=== PATIENT | female | born 1955 | race Caucasian/White ===

== ENCOUNTER → 2018-04-02 09:50 | Outpatient (CLI) | payer BC, OTHER, SELFPAY ==
--- NOTE | 2018-04-02 09:50 | DT_ITS ---
This patient was seen during an EMR downtime March 29, 2018 - April 05, 2018. This patient may have a combination of paper and electronic documentation or all paper documentation. All documentation is viewable within the e-chart portion of [email or web address] for each patient visit.
[2018-04-06 11:30] LABS: Basophil% 0.8 % (0-1); Eosinophils% 1.4 % (0-5); Hematocrit 39.1 % (37-47); Hemoglobin 13.2 g/dl (12.0-15.0); Lymphocyte % 30.7 % (19-41); Mean Corp Hgb Conc 33.8 g/gl (32-36); Mean Corpuscular Hgb 30.7 pg (27.0-32.0); Mean Corpuscular Volume 90.9 fL (81-99); Mean Platelet Vol. 10.5 fl (6.2-12.0); Neutrophil # 1.97 X10^3/uL (2.7-7.7); Neutrophil % 55.1 % (47-70); POSITIVE COUNT NO; POSITIVE DIFFERENTIAL NO; POSITIVE MORPHOLOGY NO; Platelet Count 200 K/mm3 (150-450); RBC Distribution Width CV 13.7 % (11.6-14.6); RBC Distribution Width SD 44.9 fl (35.1-43.9); White Blood Count 3.6 K/mm3 (4.4-11.0)
[2018-04-06 11:31] LABS: Basophil# 0.03 X10^3/uL; Eosinophil# 0.05 X10^3/uL; Monocyte# 0.43 X10^3/uL
[2018-04-06 15:57] LABS: BUN 14 mg/dL (7-18); BUN/Creat Ratio 14.7 RATIO (10-20); Calcium,Total 8.7 mg/dL (8.5-10.1); Creatinine, Serum 0.95 mg/dL (0.55-1.02); EST Glomerular Filtration Rate 63 mL/min (>60); Est Glom Filt Rate - Afr Amer 76 mL/min (>60); Glucose 83 mg/dL (74-106); Vitamin D,25 Hydroxy 31.6 ng/mL (29.95-100.01)
[2018-04-06 15:58] LABS: Anion Gap 6 (5-15); Chloride 109 mmol/L (98-107); Cholesterol 177 mg/dL (200); High Density Lipoprotein 83 mg/dL; Potassium 3.8 mmol/L (3.5-5.1); Sodium Level 142 mmol/L (136-145); Triglycerides 46 mg/dL; Very Low Density Lipoprotein 9 mg/dL (5-40)
== END ==
PROVIDERS: Visit Provider Family Medicine
DX: Z01.419 Encounter for gynecological examination (general) (routine) without abnormal findings (principal)
CPT/HCPCS: 36415; 80048; 80061; 82306; 85025

== ENCOUNTER → 2018-12-18 08:11 | Outpatient (CLI) | payer BC, SELFPAY ==
--- NOTE | 2018-12-18 08:14 | BI_ITS ---
MAMMOGRAPHY - BILATERAL SCREENING REASON FOR EXAM: Female, 63 years old. Routine annual screening examination. PERTINENT HISTORY: Mother with breast cancer. TECHNIQUE: Digital bilateral breast leoncio (3D mammographic acquisition) in the CC and MLO projections. 2-D mediolateral oblique (MLO) and craniocaudad (CC) views of both breasts were obtained. CAD: Full Field Digital Mammography with Computer Added Detection was performed. COMPARISON: Comparison is made with prior study dated October 01, 2017 and August 04, 2016. FINDINGS: Breast Composition: There are scattered areas of fibroglandular density. There are no dominant masses or suspicious calcifications. No other significant abnormalities are identified. There has been no significant change since the prior study. BI/SCREENING MAMM (CAD), BILAT IMPRESSION: Stable bilateral screening mammogram. Yearly follow-up mammogram recommended. (A) ASSESSMENT CATEGORY: BIRADS Category 1: Negative. A letter regarding these results will be sent to the patient by the facility within 30 days. Approximately 10% of breast cancers are not detected by mammography. A normal mammogram should not delay biopsy of a clinically suspicious abnormality. [id number] Electronically Signed: Kemar Price MD at 8:56 EST , Service support ,
== END ==
PROVIDERS: Family Provider Family Medicine; PCP Family Medicine; Referring Provider Family Medicine; Visit Provider Family Medicine
DX: Z12.31 Encounter for screening mammogram for malignant neoplasm of breast (principal)
CPT/HCPCS: 77063; 77067

== ENCOUNTER → 2019-05-17 08:09 | Outpatient (CLI) | payer MEDICARE, BC, SELFPAY ==
[2019-05-17 10:08] LABS: Hemoglobin 12.3 g/dL (12.0-15.0); Mean Corp Hgb Conc 33.2 g/dL (32-36); Mean Corpuscular Hgb 31.1 pg (27.0-32.0); Mean Corpuscular Volume 93.4 fL (81-99); Mean Platelet Vol. 10.8 fl (6.2-12.0); Platelet Count 177 K/mm3 (150-450); RBC Distribution Width CV 13.3 % (11.6-14.6); RBC Distribution Width SD 45.1 fl (35.1-43.9); Red Blood Count 3.96 M/mm3 (4.2-5.4); White Blood Count 3.1 K/mm3 (4.4-11.0)
[2019-05-17 10:40] LABS: Anion Gap 2 (5-15); BUN 11 mg/dL (7-18); BUN/Creat Ratio 13.3 RATIO (10-20); Calcium,Total 8.8 mg/dL (8.5-10.1); Chloride 109 mmol/L (98-107); Cholesterol 174 mg/dL (200); Creatinine, Serum 0.83 mg/dL (0.55-1.02); EST Glomerular Filtration Rate 73 mL/min (>60); Est Glom Filt Rate - Afr Amer 89 mL/min (>60); Glucose 85 mg/dL (74-106); High Density Lipoprotein 90 mg/dL; Sodium Level 141 mmol/L (136-145); Triglycerides 75 mg/dL; Very Low Density Lipoprotein 15 mg/dL (5-40)
[2019-05-17 10:52] LABS: Vitamin D,25 Hydroxy 25.3 ng/mL (29.95-100.01)
== END ==
PROVIDERS: Family Provider Family Medicine; PCP Family Medicine; Referring Provider Family Medicine; Visit Provider Family Medicine
DX: Z00.00 Encounter for general adult medical examination without abnormal findings (principal); Z13.220 Encounter for screening for lipoid disorders; E55.9 Vitamin D deficiency, unspecified
CPT/HCPCS: 36415; 80048; 80061; 82306; 85027

== ENCOUNTER → 2019-07-01 16:47 | Outpatient (CLI) | payer MEDICARE, BC, SELFPAY ==
--- NOTE | 2019-07-01 16:53 | CT_ITS ---
We are attempting to reach an attending provider to discuss findings. An addendum with communication details will be sent when the communication is complete. STUDY: CTA CHEST REASON FOR EXAM: Female, 64 years old. Shortness of breath RADIATION DOSAGE (If Supplied By Facility): CTDIvol = ( 5.03 ) mGy, DLP = ( 156.08 ) mGycm TECHNIQUE: The examination was performed with the intravenous administration of 100 IV Isovue 370. Post-processing of the angiographic images was performed, with multiplanar reformation and 3D reconstruction. Individualized dose optimization techniques were used for this CT. COMPARISON: None. FINDINGS: There are pulmonary emboli within left upper lobe lobar, segmental, and subsegmental branches and in the right upper and middle lobe segmental and subsegmental branches as well as right lower lobe subsegmental branches. There is no demonstrated aortic dissection. Normal heart and pericardium. Normal mediastinum. Normal hilar regions. Normal visualized trachea and bronchi. The lungs are well expanded. Mild pulmonary edema is present. Bibasilar atelectasis is present. Right greater than left pleural effusions are present. Normal chest wall structures. Normal osseous structures. Normal visualized upper abdomen. CT/CTA Chest W/WO Contrast IMPRESSION: Multiple bilateral pulmonary emboli as described above. Right greater than left pleural effusions with adjacent atelectasis. Mild pulmonary edema. Electronically Signed: Wes Black, at 17:39 EDT Tel , Service support ,
[2019-07-01 17:16] LABS: CREATININE FINGERSTICK 0.9 mg/dL (0.55-1.02)
== END ==
PROVIDERS: Family Provider Family Medicine; PCP Family Medicine; Referring Provider Family Medicine; Visit Provider Family Medicine
DX: J45.990 Exercise induced bronchospasm (principal); R06.02 Shortness of breath
CPT/HCPCS: 71275; Q9967

== ENCOUNTER 2019-07-01 18:00 | Inpatient (IN) | payer MEDICARE, BC, SELFPAY ==
[2019-07-01 18:02] VITALS: BP 148/85; PULSE 66; RESP 18; TEMP 36.5; O2SAT 88; BMI 26.9
--- NOTE | 2019-07-01 18:19 | EKG12_ITS ---
Test Reason : SOB Blood Pressure : / mmHG Vent. Rate : 057 BPM Atrial Rate : 057 BPM P-R Int : 130 ms QRS Dur : 084 ms QT Int : 432 ms P-R-T Axes : 035 063 037 degrees QTc Int : 420 ms Sinus bradycardia Nonspecific ST abnormality Abnormal ECG Confirmed by DREAD FRYE ([id number]), manager editorial ANGELICA MENON ([id number]) on 07/04/2019 2:22:11 PM Referred By: Leonardo Tobar Confirmed By:DREAD FRYE
[2019-07-01 18:49] LABS: Absolute Lymphocyte Count 1.45 X10^3/uL (0.83-4.51); Absolute Neutrophil Count 4.5 X10^3/uL (2.0-7.7); Basophil# 0.06 X10^3/uL; Basophil% 0.8 % (0-1); Eosinophil# 0.07 X10^3/uL; Hematocrit 35.4 % (37-47); Hemoglobin 11.7 g/dL (12.0-15.0); Lymphocyte # 1.45 X10^3/ul (4.0); Lymphocyte % 20.3 % (19-41); Mean Corp Hgb Conc 33.1 g/dL (32-36); Mean Corpuscular Volume 93.7 fL (81-99); Mean Platelet Vol. 10.5 fl (6.2-12.0); Monocyte# 0.91 X10^3/uL; Monocyte% 12.7 % (0-10); NRBC Flagged by Analyzer 0 % (0-5); Neutrophil # 4.51 X10^3/uL (2.7-7.7); Platelet Count 141 K/mm3 (150-450); RBC Distribution Width CV 13.8 % (11.6-14.6); RBC Distribution Width SD 46.9 fl (35.1-43.9); Red Blood Count 3.78 M/mm3 (4.2-5.4); White Blood Count 7.2 K/mm3 (4.4-11.0)
[2019-07-01 18:52] LABS: International Normalized Ratio 1.2; Prothrombin Time (Protime)PT. 14.8 SECONDS (11.7-14.9)
[2019-07-01 18:53] LABS: Partial Thromboplast Time 25.2 Seconds (24.1-36.2)
[2019-07-01 18:58] VITALS: BP 162/80; PULSE 59; RESP 18; O2SAT 99
[2019-07-01 19:15] LABS: AST(SGOT) 52 U/L (15-37); Alanine Aminotransfer ALT/SGPT 61 U/L (13-56); Albumin, Serum 2.9 g/dL (3.2-5.0); Alkaline Phosphatase 287 U/L (45-117); Anion Gap 4 (5-15); BUN 8 mg/dL (7-18); BUN/Creat Ratio 10.2 RATIO (10-20); Calcium,Total 8.1 mg/dL (8.5-10.1); Chloride 106 mmol/L (98-107); Creatinine, Serum 0.78 mg/dL (0.55-1.02); EST Glomerular Filtration Rate 79 mL/min (>60); Est Glom Filt Rate - Afr Amer 95 mL/min (>60); Estimated Creatinine Clearance 62.09 ml/min; Glucose 90 mg/dL (74-106); Lipase 578 U/L (73-393); Potassium 3.2 mmol/L (3.5-5.1); Protein, Total 5.9 g/dL (6.4-8.2); Sodium Level 141 mmol/L (136-145)
[2019-07-01 19:25] LABS: BNP,B-Type NATRIURETIC PEPTIDE 337.6 pg/mL (0-100)
--- NOTE | 2019-07-01 19:29 | ED.VIS.GEN ---
History of Present Illness Chief Complaint: Shortness of Breath Informant: Patient Onset: Days Context: Gradual Onset Timing: Continuous Current Severity: Moderate Maximum Severity: Severe Narrative: The patient presents to the emergency department with shortness of breath and outpatient CT scan which shows bilateral pulmonary emboli. The patient recently traveled to [place] with for vacation. She states that while there, she had a gallbladder attack. The patient was admitted to the hospital. She had gallstone pancreatitis. She underwent ERCP, and the next day she had a laparoscopic cholecystectomy. Prior to discharge, the patient was hypoxic with ambulation. Since she was out of town, she did not want to stay at the hospital. She returned home and followed up with her primary care. She was found to be 88% on room air. She had outpatient CT scan done today which demonstrated multiple bilateral pulmonary emboli and small effusions. Patient denies any chest pain. She does admit to exertional dyspnea. She denies abdominal pain. She states her incisions have been healing without issue. Prior similar symptoms: No Recent Illness/Hospitalization: Yes Past Medical History - Allergies and Home Meds Allergies/Adverse Reactions: Allergies No Known Allergies Allergy (Verified 07/01/19 18:01) Primary Care Physician: Leonardo Tobar MD [Primary Care Provider] - Prior records reviewed: Yes Past Medical History: None Surgical History: cholecystectomy Smoking Status: Never smoker Review of Systems General: Denies: Chills, Fever, Sweats Eyes: Denies: Visual changes - bilaterally, Diplopia ENT: Denies: Rhinorrhea, Sore throat Cardiovascular: Denies: Chest pain, Palpitations Respiratory: Reports: Dyspnea, Dyspnea on exertion, Orthopnea. Denies: Cough Gastrointestinal: Reports: Nausea. Denies: Abdominal pain, Vomiting, Diarrhea, Melena, Hematochezia Genitourinary: Denies: Dysuria, Hematuria, Frequency Musculoskeletal: Denies: Back pain, Extremity Pain Skin: Denies: Rash, Wounds Neurological: Denies: Headache, Weakness, Numbness Physical Exam Vital Signs/Narrative: Vital Signs Temp Pulse Resp BP Pulse Ox 07/01/19 18:58 59 L 18 162/80 H 99 07/01/19 18:02 97.7 F L 66 18 148/85 H 88 Inital Vital Signs reviewed: Yes General: Well nourished, Well developed, No Acute Distress Head: Normocephalic, Atraumatic Eyes: Perrl, EOMI ENT: Moist mucous membranes, No rhinorrhea Neck: Supple, Nontender Cardiovascular: Regular rate, Regular rhythm, No murmurs Respiratory: No distress, Chest nontender, Decreased Air Movement Abdomen: Soft, Nontender, Nondistended, Normal bowel sounds Back: Nontender, Normal Inspection Extremities: Nontender, Edema - Trace edema bilateral lower extremities Skin: Normal color, No rash Neurological: Alert, Oriented x3, Cranial nerves II-XII grossly intact, Normal Strength, Normal Sensation Psychological: Normal affect, Normal Mood Diagnostic/Tx/Re-eval Abnormal Lab Results 07/01/19 07/01/19 07/01/19 18:35 18:35 18:35 WBC 7.2 RBC 3.78 L Hgb 11.7 L Hct 35.4 L MCV 93.7 MCH 31.0 MCHC 33.1 RDW Std Deviation 46.9 H RDW Coeff of Nilson 13.8 Plt Count 141 L MPV 10.5 Immature Gran % (Auto) 2.200 H Neut % (Auto) 63.0 Lymph % (Auto) 20.3 [place] % (Auto) 12.7 H Eos % (Auto) 1.0 Baso % (Auto) 0.8 Absolute Neuts (auto) 4.5 Absolute Lymphs (auto) 1.45 Nucleated RBC % 0 PT 14.8 INR 1.2 APTT 25.2 Sodium 141 Potassium 3.2 L Chloride 106 Carbon Dioxide 31.0 Anion Gap 4 L BUN 8 Creatinine 0.78 Estim Creat Clear Calc 62.09 Est GFR (MDRD) Af Amer 95 Est GFR (MDRD) Non-Af 79 BUN/Creatinine Ratio 10.2 Glucose 90 Calcium 8.1 L Total Bilirubin 1.20 H AST 52 H ALT 61 H Alkaline Phosphatase 287 H Troponin I < 0.015 B-Natriuretic Peptide Total Protein 5.9 L Albumin 2.9 L Globulin 3.0 Albumin/Globulin Ratio 1.0 Lipase 578 H 07/01/19 18:35 WBC RBC Hgb Hct MCV MCH MCHC RDW Std Deviation RDW Coeff of Nilson Plt Count MPV Immature Gran % (Auto) Neut % (Auto) Lymph % (Auto) [place] % (Auto) Eos % (Auto) Baso % (Auto) Absolute Neuts (auto) Absolute Lymphs (auto) Nucleated RBC % PT INR APTT Sodium Potassium Chloride Carbon Dioxide Anion Gap BUN Creatinine Estim Creat Clear Calc Est GFR (MDRD) Af Amer Est GFR (MDRD) Non-Af BUN/Creatinine Ratio Glucose Calcium Total Bilirubin AST ALT Alkaline Phosphatase Troponin I B-Natriuretic Peptide 337.6 H Total Protein Albumin Globulin Albumin/Globulin Ratio Lipase - Rhythm Strip Rhythm Strip: Sinus Rhythm Rate: 60 Ectopy: None - EKG Initial EKG Interpretation: Sinus Rhythm, No Acute Injury Pattern, Non-Specific ST Changes Prior: No Prior - Medical Decision Making The patient was hypoxic on room air. She was not tachycardic. EKG was obtained which showed some nonspecific T wave changes in V1 and V2. I did review the patient's CTA which was consistent with multiple bilateral pulmonary emboli. As the patient is hypoxic, I do feel that she is can require admission. Patient's cardiac enzymes are normal. Her BNP was mildly elevated, but she does have small effusions. There is no evidence of ventricular strain on her CTA. She does have mild elevation of her LFTs and lipase, but was just admitted and had ERCP and cholecystectomy. She has absolutely no abdominal pain. With her recent surgery, I do feel the patient is going to require heparin drip. Given her hypoxia, I do feel that she will need admitted. The patient was discussed with the hospitalist. Impression 1. Bilateral pulmonary emboli. 2. Hypoxia ED Disposition - Plan for ED Patient: Referrals: Leonardo Tobar MD [Primary Care Provider] -
--- NOTE | 2019-07-01 19:54 | HP.PCM_ITS ---
Problem List (1) Bilateral pulmonary embolism Status: Acute History of Present Illness Date of Admission: 07/01/19 Chief Complaint: SHORTNESS OF BREATH The patient is a 64 year old F who had Gallbladder pancreatitis S/P ERCP with stent and cholecystectomy presenting with shortness of breath with minimal exertion in the same week that she had her ERCP and cholecystomy. Her symptoms started a day before presentation. She and her drove to [place], [place] for hiking. While there she had a gallbladder attack and was hospitalized as stated above. On 06/28/2019 she had a ERCP with a stent and the next day she had a cholecystectomy. While at the hospital because of bradycardia and labile blood pressure she was advised to see a sand screener operator on discharge. Her oxygen over there was a 70s with ambulation. Patient was eventually discharged with a plan to see a sand screener operator as above. Her discharge was with hesitation. After discharge and on the day of this presentation, she saw her PCP. At the PCPs office her oxygen saturation was low. Patient was sent for CTPA. CTPA showed multiple emboli and patient was advised to come to emergency department. She denies any leg pain. However bilateral legs has been swollen but now the swelling is going down. She thinks that IV fluid she received at her recent hospitalization might have contributed to her bilateral leg swelling. Her last mammogram was in November 2018 and it was unremarkable. Last colonoscopy was last year and it was unremarkable. She denies any family history of blood clots. At the emergency department she was found to have T wave inversions in lead V1 and V2. Her troponin was unremarkable. Past Medical History Medical History: Medical History (Last Updated 07/01/19 @ 21:02 by Javon De Luna MD) No previous medical history Allergies No Known Allergies Allergy (Verified 07/01/19 18:01) Home Medications: Ambulatory Orders Medication Instructions Recorded Acetaminophen [Tylenol Extra 1,000 mg PO Q6H PRN PRN 07/01/19 Strength] Ciprofloxacin [Cipro] 500 mg PO BID 07/01/19 Surgical History: cholecystectomy Lives: Spouse/ Significant Other Smoking Status: Never smoker Alcohol: Occasional - *Family History Maternal History Items: Cancer - Breast Paternal History Items: - - Leukemia Review of Systems Constitutional: Denies: Chills, Fever, Weight Change HEENT: Denies: Head Aches, Sinus Congestion, Sinus Drainage Cardiovascular: Denies: Chest Pain, Palpitations Respiratory: Reports: Shortness of breath upon exertion. Denies: Cough, Shortness of breath at rest, Sputum production Gastrointestinal: Denies: Abdominal Pain, Nausea, Vomiting Genitourinary: Denies: Dysuria Musculoskeletal: Reports: Back Pain. Denies: Joint Pain, Joint Tenderness Skin: Denies: Rash, Wounds Neurological: Denies: Numbness, Tingling, Focal weakness Psychiatric: Denies: Anxiety, Depression, Homicidal Ideations, Suicidal Ideations Hematologic/ Lymphatic: Denies: Easy Bruising, Easy Bleeding VTE Information - Inpt Only VTE Present on Admission: Yes - She has been started on heparin drip. VTE Mechan Device Prophylaxis: None VTE Pharm Prophylaxis ordered?: No Reason prophylaxis not ordered:: Treatment Not Indicated - Started on heparin drip for acute bilateral PE Patient Problems: Active and Suspected Problems (Last Updated 07/01/19 @ 21:02 by Javon De Luna MD) Bilateral pulmonary embolism (Acute) - Physical Exam General: Alert, Oriented x3, Cooperative HEENT: Atraumatic, PERRLA, EOMI, Normocephalic Neck: Supple, No JVD, Negative Carotid Bruits Lungs: Clear to auscultation, Diminished Cardiovascular: Regular rate, No murmurs Abdomen: Bowel Sounds Present, Soft, Non Tender, - - Four incisions on abdomen approximated with glue Extremities: Capillary Refill Less than 3 Seconds, Edema - +1 bilateral feet. Skin: No rashes, No breakdown Musculoskeletal: No Tenderness to Palpation of Joints or Extremities Neurological: Cranial nerves II-XII grossly intact Psych/Mental Status: Normal Affect, Appropriate Vital Signs Temp Pulse Resp BP Pulse Ox 97.7 F L 59 L 18 162/80 H 99 07/01/19 18:02 07/01/19 18:58 07/01/19 18:58 07/01/19 18:58 07/01/19 18:58 Oxygen Flow Rate (L/min) 2 Oxygen Delivery Method Nasal Cannula Weight: 71.214 kg Body Mass Index (BMI) 26.9 Laboratory Tests Past 24 Hrs 07/01/19 07/01/19 07/01/19 18:35 18:35 18:35 WBC 7.2 RBC 3.78 L Hgb 11.7 L Hct 35.4 L MCV 93.7 MCH 31.0 MCHC 33.1 RDW Std Deviation 46.9 H RDW Coeff of Nilson 13.8 Plt Count 141 L MPV 10.5 Immature Gran % (Auto) 2.200 H Neut % (Auto) 63.0 Lymph % (Auto) 20.3 [place] % (Auto) 12.7 H Eos % (Auto) 1.0 Baso % (Auto) 0.8 Absolute Neuts (auto) 4.5 Absolute Lymphs (auto) 1.45 Nucleated RBC % 0 PT 14.8 INR 1.2 APTT 25.2 Sodium 141 Potassium 3.2 L Chloride 106 Carbon Dioxide 31.0 Anion Gap 4 L BUN 8 Creatinine 0.78 Estim Creat Clear Calc 62.09 Est GFR (MDRD) Af Amer 95 Est GFR (MDRD) Non-Af 79 BUN/Creatinine Ratio 10.2 Glucose 90 Calcium 8.1 L Total Bilirubin 1.20 H AST 52 H ALT 61 H Alkaline Phosphatase 287 H Troponin I < 0.015 B-Natriuretic Peptide Total Protein 5.9 L Albumin 2.9 L Globulin 3.0 Albumin/Globulin Ratio 1.0 Lipase 578 H 07/01/19 18:35 WBC RBC Hgb Hct MCV MCH MCHC RDW Std Deviation RDW Coeff of Nilson Plt Count MPV Immature Gran % (Auto) Neut % (Auto) Lymph % (Auto) [place] % (Auto) Eos % (Auto) Baso % (Auto) Absolute Neuts (auto) Absolute Lymphs (auto) Nucleated RBC % PT INR APTT Sodium Potassium Chloride Carbon Dioxide Anion Gap BUN Creatinine Estim Creat Clear Calc Est GFR (MDRD) Af Amer Est GFR (MDRD) Non-Af BUN/Creatinine Ratio Glucose Calcium Total Bilirubin AST ALT Alkaline Phosphatase Troponin I B-Natriuretic Peptide 337.6 H Total Protein Albumin Globulin Albumin/Globulin Ratio Lipase Assessment/Plan All Active Problems (Last Updated 07/01/19 @ 21:02 by Javon De Luna MD) Bilateral pulmonary embolism (Acute) The patient is a 64 year old F who had Gallbladder pancreatitis s/p ERCP and cholecystectomy presenting in the same week of presentation as the above procedure with SOB on minimal exertion and and found to have bilateral emboli on CTA chest. Acute bilateral pulmonary emboli Patient has been admitted to PCU on telemetry monitoring. Patient was started on heparin drip; continued We will get echocardiogram of chest and Doppler of bilateral lower extremities. Because of T wave inversion in V1 V2 we will trend troponin. Initial troponin was unremarkable. Acute gallbladder pancreatitis status post ERCP with stent and cholecystectomy Continue ciprofloxacin that was prescribed for patient's on recent discharge. She was prescribed narcotic but she has not been taking; will not prescribed. Patient has been taking 2 extra strength Tylenol for pain. Will prescribe Tylenol 1000 mg every 8 hours. Of note patient has elevated liver enzymes likely from recent gallbladder pancreatitis. Elevated blood pressure without diagnosis of hypertension. On presentation blood pressure was not within goal. We will start patient on labetalol IV as needed for systolic blood pressure more than 160. If patient continue to receive labetalol IV consider starting patient on p.o. blood pressure medication DVT prophylaxis Not indicated since patient has acute bilateral emboli and she has been started on a heparin drip Code Visit Inpatient E&M: 52998 Init Hosp L3
[2019-07-01] MEDS: Heparin Injection (Vial) 5,000 UNIT/ML VIAL 5000 UNIT IV (19:58)
[2019-07-01] MEDS: HEPARIN/D5w 25,000 UNITS 25,000 UNITS/250 ML IV.SOLN. 11 UNITS IV (20:06)
[2019-07-01 20:38] VITALS: PULSE 60; BMI 27.1
[2019-07-01 20:40] VITALS: BP 182/83; PULSE 60; RESP 18; TEMP 37; O2SAT 94
[2019-07-01 20:43] VITALS: BMI 27.2
--- NOTE | 2019-07-01 20:53 | ECHOD_ITS ---
Reason For Study: Emboli Procedure This was a 2D Doppler, Color Flow transthoracic echocardiogram. Exam performed portable in patient room. Left Ventricle Normal size and thickness. The estimated ejection fraction is 65 %. Normal diastology for age. No regional wall motion abnormalities noted. Right Ventricle Normal size and thickness. Normal systolic function. Atria The left atrium is mildly enlarged. Normal right atrium. Normal atrial septum. Mitral Valve The mitral valve is structurally normal. No prolapse or stenosis seen. Trivial mitral valve insufficiency. Tricuspid Valve Normal tricuspid valve. Unable to estimate RV systolic pressure due to insufficient tricuspid regurgitant envelope. Aortic Valve Trisinus/trileaflet aortic valve. Normal aortic valve. Trivial aortic valve insufficiency. Pulmonic Valve Normal pulmonic valve. Trivial pulmonic valve insufficiency. Great Vessels Normal aortic root. Normal arch. Normal inferior vena cava. Inferior vena cava collapse with sniff. Pericardium/Pleural No pericardial effusion. MMode/2D Measurements & Calculations LVIDd: 4.6 cm IVSd: 1.2 cm Ao root diam: 3.2 cm LVIDs: 3.1 cm LVPWd: 1.2 cm LA dimension: 4.0 cm RVDd: 2.8 cm FS: 31.3 % LAV(MOD-bp): 71.7 ml LA A4 area: 23.5 cm2 RA A4 area: 16.3 cm2 LAV(MOD-bp) Indexed: 40.5 ml/m2 LAV(MOD-sp2): 61.2 ml LAV(MOD-sp4): 76.0 ml Time Measurements MV dec time: 0.17 sec Doppler Measurements & Calculations MV E max emanuel: 81.9 cm/sec Lat Peak E' Emanuel: 11.3 cm/sec Med Peak E' Emanuel: 9.5 cm/sec MV A max emanuel: 82.8 cm/sec E/E' lat: 7.2 E/E' med: 8.6 MV E/A: 0.99 MV V2 max: 114.5 cm/sec MV P1/2t max emanuel: 115.2 cm/sec Ao V2 max: 117.8 cm/sec MV max P.2 mmHg MV P1/2t: 65.5 msec Ao max P.5 mmHg MV V2 mean: 55.2 cm/sec MV dec slope: 515.4 cm/sec2 Ao V2 mean: 77.2 cm/sec MV mean P.5 mmHg MVA(P1/2t): 3.4 cm2 Ao mean P.7 mmHg MV V2 VTI: 34.3 cm Ao V2 VTI: 27.4 cm LV V1 max: 110.0 cm/sec MR max emanuel: 496.1 cm/sec PA V2 max: 84.7 cm/sec LV V1 max P.8 mmHg MR max P.4 mmHg LV V1 mean P.0 mmHg MR mean emanuel: 418.7 cm/sec LV V1 mean: 64.3 cm/sec MR mean P.7 mmHg LV V1 VTI: 25.2 cm MR VTI: 205.1 cm Interpretation Summary The estimated ejection fraction is 65 %. Normal diastology for age. The left atrium is mildly enlarged. Trivial mitral valve insufficiency. Unable to estimate RV systolic pressure due to insufficient tricuspid regurgitant envelope. Trivial aortic valve insufficiency. There is no comparison study available. Ordering Physician: Javon De Luna Referring Physician: Leonardo Tobar Performed By: Sukhdev Hernández RCS
[2019-07-01 21:25] LABS: Magnesium 1.9 mg/dL (1.6-2.6)
[2019-07-01] MEDS: Ciprofloxacin 500 MG Tablet PO (22:30)
[2019-07-01 23:00] VITALS: PULSE 67
[2019-07-02] VITALS (7 sets, daily range): BP systolic 139–153; BP diastolic 74–80; PULSE 68–75; RESP 14–18; TEMP 36.9–37.2; O2SAT 89–94
[2019-07-02] MEDS: Acetaminophen 500 MG Tablet 1000 MG PO ×2 (01:46→09:44)
[2019-07-02 02:08] LABS: Partial Thromboplast Time 131.4 Seconds (24.1-36.2)
[2019-07-02 08:10] LABS: Anion Gap 9 (5-15); BUN 7 mg/dL (7-18); BUN/Creat Ratio 11.7 RATIO (10-20); Chloride 107 mmol/L (98-107); EST Glomerular Filtration Rate 107 mL/min (>60); Est Glom Filt Rate - Afr Amer 129 mL/min (>60); Estimated Creatinine Clearance 80.72 ml/min; Glucose 93 mg/dL (74-106); Potassium 3.7 mmol/L (3.5-5.1); Sodium Level 142 mmol/L (136-145)
[2019-07-02 08:34] LABS: Partial Thromboplast Time 54.5 Seconds (24.1-36.2)
[2019-07-02] MEDS: Ciprofloxacin 500 MG Tablet PO (09:45)
--- NOTE | 2019-07-02 11:14 | PCM.DC ---
- Discharge Diagnoses Current Active Problems: Current Active and Chronic Problems (Last Updated 07/01/19 @ 21:02 by Javon De Luna MD) Bilateral pulmonary embolism (Acute) You will use the following diet at home:: Other - low fat, no greasy foods. Your food should be the consistency of: Regular Your liquids should be the consistency of: Regular/Thin Discharge Activity: Return to Normal Activity Allergies/Adverse Reactions: Allergies No Known Allergies Allergy (Verified 07/01/19 18:01) Medications to take at Discharge Acetaminophen [Tylenol] 1,000 mg PO Q6H PRN PRN 07/01/19 Ciprofloxacin [Cipro] 500 mg PO BID 07/01/19 Rivaroxaban [Xarelto] 20 mg PO DAILY 30 Days #30 tab 07/02/19 The following prescriptions were given: Rivaroxaban [Xarelto] 20 mg PO DAILY 30 Days #30 tab Transmission Status: Received by [facility] Primary Care Physician: Leonardo Tobar MD [Primary Care Provider] - Please follow up with your Primary Care Physician in: 1-2 weeks Test Results: Test results from this visit will be discussed in further detail at your follow-up appointment, if applicable.
--- NOTE | 2019-07-02 13:58 | DS.PCM_ITS ---
<Buddy Greenwood - Last Filed: 07/02/19 14:09> Discharge Date and Diagnosis Date of Admission: 07/01/19 Date of Discharge: 07/02/19 - Primary Discharge Diagnosis Acute bilateral PEs, suspect provoked 2/2 recent surgery Hypokalemia resolved Abnormal LFTs 2/2 recent gallbladder pancreatitis, cholecystectomy/ERCP Hospital Course and Treatment Imaging Results: Imaging: Echo: Interpretation Summary The estimated ejection fraction is 65 %. Normal diastology for age. The left atrium is mildly enlarged. Trivial mitral valve insufficiency. Unable to estimate RV systolic pressure due to insufficient tricuspid regurgi tant envelope. Trivial aortic valve insufficiency. There is no comparison study available. CT/CTA Chest W/WO Contrast IMPRESSION: Multiple bilateral pulmonary emboli as described above. Right greater than left pleural effusions with adjacent atelectasis. Mild pulmonary edema. Operations: None Procedures: 2-D Echocardiogram Summary of Care Provided: Hospital Course: The patient is a 64 year old F with pmhx of recent gallbladder pancreatitis with recent ERCP and cholecystectomy who presented to her PCP for SOB and was sent for a CTA of the chest, which did demonstrate acute BL PEs. She was admitted to the PCU and started on a heparin drip. She did well overnight and did not require O2. Her SOB resolved. She was ambulated and did have mild dyspnea, however she was able to keep her sats at least 89%. She was advised on spirometry. She had an echo with results as above, non acute. She was prescribed xarelto which we confirmed would be covered by insurance. She was discharged home in stable condition. She will need to follow up with her PCP in 1-2 weeks and needs to follow up as directed for her recent surgery. This patient was seen by Buddy Greenwood PA-C under the supervision of Dr. Gustafson. [] - Physical Exam General: Alert, Oriented x3, Cooperative HEENT: Atraumatic, PERRLA, EOMI, Normocephalic Neck: Supple, No JVD, Negative Carotid Bruits Lungs: Clear to auscultation, Normal air movement Cardiovascular: Regular rate, No murmurs Abdomen: Bowel Sounds Present, Soft, Non Tender Extremities: No edema, Capillary Refill Less than 3 Seconds Skin: No rashes, No breakdown Musculoskeletal: No Tenderness to Palpation of Joints or Extremities Neurological: Cranial nerves II-XII grossly intact Psych/Mental Status: Normal Affect, Appropriate, Alert and oriented to time, place, person, mood and affect Vital Signs Temp Pulse Resp BP Pulse Ox 98.4 F 72 14 153/77 H 94 07/02/19 09:29 07/02/19 09:29 07/02/19 09:29 07/02/19 09:29 07/02/19 12:04 Oxygen Flow Rate (L/min) 2 Oxygen Delivery Method Room Air Weight: 158 lb 4.67 oz Body Mass Index (BMI) 27.1 Intake and Output for Last 24 Hours 06/30/19 07/01/19 07/02/19 23:59 23:59 23:59 Intake Total 42.53 / 492.53 978.97 / 978.97 Balance 42.53 / 492.53 978.97 / 978.97 Laboratory Tests Past 24 Hrs 07/01/19 07/01/19 07/01/19 18:35 18:35 18:35 WBC 7.2 RBC 3.78 L Hgb 11.7 L Hct 35.4 L MCV 93.7 MCH 31.0 MCHC 33.1 RDW Std Deviation 46.9 H RDW Coeff of Nilson 13.8 Plt Count 141 L MPV 10.5 Immature Gran % (Auto) 2.200 H Neut % (Auto) 63.0 Lymph % (Auto) 20.3 Cascade % (Auto) 12.7 H Eos % (Auto) 1.0 Baso % (Auto) 0.8 Absolute Neuts (auto) 4.5 Absolute Lymphs (auto) 1.45 Nucleated RBC % 0 PT 14.8 INR 1.2 APTT 25.2 Sodium 141 Potassium 3.2 L Chloride 106 Carbon Dioxide 31.0 Anion Gap 4 L BUN 8 Creatinine 0.78 Estim Creat Clear Calc 62.09 Est GFR (MDRD) Af Amer 95 Est GFR (MDRD) Non-Af 79 BUN/Creatinine Ratio 10.2 Glucose 90 Calcium 8.1 L Magnesium Total Bilirubin 1.20 H AST 52 H ALT 61 H Alkaline Phosphatase 287 H Troponin I < 0.015 B-Natriuretic Peptide Total Protein 5.9 L Albumin 2.9 L Globulin 3.0 Albumin/Globulin Ratio 1.0 Lipase 578 H 07/01/19 07/01/19 07/01/19 18:35 18:35 21:30 WBC RBC Hgb Hct MCV MCH MCHC RDW Std Deviation RDW Coeff of Nilson Plt Count MPV Immature Gran % (Auto) Neut % (Auto) Lymph % (Auto) Cascade % (Auto) Eos % (Auto) Baso % (Auto) Absolute Neuts (auto) Absolute Lymphs (auto) Nucleated RBC % PT INR APTT Sodium Potassium Chloride Carbon Dioxide Anion Gap BUN Creatinine Estim Creat Clear Calc Est GFR (MDRD) Af Amer Est GFR (MDRD) Non-Af BUN/Creatinine Ratio Glucose Calcium Magnesium 1.9 Total Bilirubin AST ALT Alkaline Phosphatase Troponin I < 0.015 B-Natriuretic Peptide 337.6 H Total Protein Albumin Globulin Albumin/Globulin Ratio Lipase 07/02/19 07/02/19 07/02/19 01:30 01:30 07:48 WBC RBC Hgb Hct MCV MCH MCHC RDW Std Deviation RDW Coeff of Nilson Plt Count MPV Immature Gran % (Auto) Neut % (Auto) Lymph % (Auto) Cascade % (Auto) Eos % (Auto) Baso % (Auto) Absolute Neuts (auto) Absolute Lymphs (auto) Nucleated RBC % PT INR APTT 131.4 H* Sodium 142 Potassium 3.7 Chloride 107 Carbon Dioxide 26.0 Anion Gap 9 BUN 7 Creatinine 0.60 Estim Creat Clear Calc 80.72 Est GFR (MDRD) Af Amer 129 Est GFR (MDRD) Non-Af 107 BUN/Creatinine Ratio 11.7 Glucose 93 Calcium 8.0 L Magnesium Total Bilirubin AST ALT Alkaline Phosphatase Troponin I < 0.015 B-Natriuretic Peptide Total Protein Albumin Globulin Albumin/Globulin Ratio Lipase 07/02/19 07:48 WBC RBC Hgb Hct MCV MCH MCHC RDW Std Deviation RDW Coeff of Nilson Plt Count MPV Immature Gran % (Auto) Neut % (Auto) Lymph % (Auto) Cascade % (Auto) Eos % (Auto) Baso % (Auto) Absolute Neuts (auto) Absolute Lymphs (auto) Nucleated RBC % PT INR APTT 54.5 H Sodium Potassium Chloride Carbon Dioxide Anion Gap BUN Creatinine Estim Creat Clear Calc Est GFR (MDRD) Af Amer Est GFR (MDRD) Non-Af BUN/Creatinine Ratio Glucose Calcium Magnesium Total Bilirubin AST ALT Alkaline Phosphatase Troponin I B-Natriuretic Peptide Total Protein Albumin Globulin Albumin/Globulin Ratio Lipase Discharge Diet: - - avoid greasy / fatty foods Discharge Activity: Return to Normal Activity Home Medications: Medications to take at Discharge Acetaminophen [Tylenol] 1,000 mg PO Q6H PRN PRN 07/01/19 Ciprofloxacin [Cipro] 500 mg PO BID 07/01/19 Rivaroxaban [Xarelto] 20 mg PO DAILY 30 Days #30 tab 07/02/19 Following Prescrptions Were Given to Patient: Rivaroxaban [Xarelto] 20 mg PO DAILY 30 Days #30 tab Transmission Status: Received by [facility] Primary Care Physician: Leonardo Tobar MD [Primary Care Provider] - Please follow up with your Primary Care Physician in: 1-2 weeks Please Follow Up With: Leonardo Tobar MD Disposition: Home Minutes spent on discharge:: 35 Patient Condition:: Stable Medical Necessity - Tobacco Use Smoking Status: Never smoker Meaningful Use Info Meaningful Use Diagnoses (Choose all that apply): VTE - VTE Anticoag overlap given w/in hospital stay or rx'd at dc?: No Pt receive overlap for 5 days?: No Reason overlap not ordered, prescribed, or given for 5 days: Procedure Not Indicated <Landy Gustafson - Last Filed: 07/02/19 14:42> Hospital Course and Treatment Summary of Care Provided: This patient was seen in conjunction with RENITA Blount. I have independently interviewed and examined the patient and reviewed pertinent historical, laboratory, and other data. Please refer to RENITA Blount note for his patient's presentation, findings, and recommendations. I have reviewed and his note and concur with his documentation 64-year-old female with no significant past medical history except for recent gallbladder pancreatitis status post recent ERCP and cholecystectomy who presented to her primary care doctor with shortness of breath and had CTA of the chest which demonstrated bilateral multiple PEs. Patient was admitted to the telemetry floor and started on heparin drip. She continued to be stable overnight. Stable vitals. She had 2D echo done which was unremarkable. Patient continued to remain stable. She was discharged home on Xarelto and will follow up with her primary care doctor within 2 weeks. Physical Exam: Gen: Comfortable, not pale, not jaundiced CVS:HS I +II, regular, no murmurs RESP: CTA GI: BS present and normal, laparoscopic scars are well-healed, no erythema, soft, tenderness on deep palpation around the incisional scars, no palpable organs EXT: bilateral pedal edema +1 SUPERVISING ARCHITECT: Grossly intact ASSESSMENT: 1. Acute bilateral PE 2. Recent gallbladder pancreatitis status post ERCP with stent 3. Recent status post cholecystectomy - Physical Exam Vital Signs Temp Pulse Resp BP Pulse Ox 98.4 F 72 14 153/77 H 94 07/02/19 09:29 07/02/19 09:29 07/02/19 09:29 07/02/19 09:29 07/02/19 12:04 Oxygen Flow Rate (L/min) 2 Oxygen Delivery Method Room Air Weight: 71.8 kg Body Mass Index (BMI) 27.1 Intake and Output for Last 24 Hours 06/30/19 07/01/19 07/02/19 23:59 23:59 23:59 Intake Total 42.53 / 492.53 978.97 / 978.97 Balance 42.53 / 492.53 978.97 / 978.97 Laboratory Tests Past 24 Hrs 07/01/19 07/01/19 07/01/19 18:35 18:35 18:35 WBC 7.2 RBC 3.78 L Hgb 11.7 L Hct 35.4 L MCV 93.7 MCH 31.0 MCHC 33.1 RDW Std Deviation 46.9 H RDW Coeff of Nilson 13.8 Plt Count 141 L MPV 10.5 Immature Gran % (Auto) 2.200 H Neut % (Auto) 63.0 Lymph % (Auto) 20.3 Cascade % (Auto) 12.7 H Eos % (Auto) 1.0 Baso % (Auto) 0.8 Absolute Neuts (auto) 4.5 Absolute Lymphs (auto) 1.45 Nucleated RBC % 0 PT 14.8 INR 1.2 APTT 25.2 Sodium 141 Potassium 3.2 L Chloride 106 Carbon Dioxide 31.0 Anion Gap 4 L BUN 8 Creatinine 0.78 Estim Creat Clear Calc 62.09 Est GFR (MDRD) Af Amer 95 Est GFR (MDRD) Non-Af 79 BUN/Creatinine Ratio 10.2 Glucose 90 Calcium 8.1 L Magnesium Total Bilirubin 1.20 H AST 52 H ALT 61 H Alkaline Phosphatase 287 H Troponin I < 0.015 B-Natriuretic Peptide Total Protein 5.9 L Albumin 2.9 L Globulin 3.0 Albumin/Globulin Ratio 1.0 Lipase 578 H 07/01/19 07/01/19 07/01/19 18:35 18:35 21:30 WBC RBC Hgb Hct MCV MCH MCHC RDW Std Deviation RDW Coeff of Nilson Plt Count MPV Immature Gran % (Auto) Neut % (Auto) Lymph % (Auto) Cascade % (Auto) Eos % (Auto) Baso % (Auto) Absolute Neuts (auto) Absolute Lymphs (auto) Nucleated RBC % PT INR APTT Sodium Potassium Chloride Carbon Dioxide Anion Gap BUN Creatinine Estim Creat Clear Calc Est GFR (MDRD) Af Amer Est GFR (MDRD) Non-Af BUN/Creatinine Ratio Glucose Calcium Magnesium 1.9 Total Bilirubin AST ALT Alkaline Phosphatase Troponin I < 0.015 B-Natriuretic Peptide 337.6 H Total Protein Albumin Globulin Albumin/Globulin Ratio Lipase 07/02/19 07/02/19 07/02/19 01:30 01:30 07:48 WBC RBC Hgb Hct MCV MCH MCHC RDW Std Deviation RDW Coeff of Nilson Plt Count MPV Immature Gran % (Auto) Neut % (Auto) Lymph % (Auto) Cascade % (Auto) Eos % (Auto) Baso % (Auto) Absolute Neuts (auto) Absolute Lymphs (auto) Nucleated RBC % PT INR APTT 131.4 H* Sodium 142 Potassium 3.7 Chloride 107 Carbon Dioxide 26.0 Anion Gap 9 BUN 7 Creatinine 0.60 Estim Creat Clear Calc 80.72 Est GFR (MDRD) Af Amer 129 Est GFR (MDRD) Non-Af 107 BUN/Creatinine Ratio 11.7 Glucose 93 Calcium 8.0 L Magnesium Total Bilirubin AST ALT Alkaline Phosphatase Troponin I < 0.015 B-Natriuretic Peptide Total Protein Albumin Globulin Albumin/Globulin Ratio Lipase 07/02/19 07:48 WBC RBC Hgb Hct MCV MCH MCHC RDW Std Deviation RDW Coeff of Nilson Plt Count MPV Immature Gran % (Auto) Neut % (Auto) Lymph % (Auto) Cascade % (Auto) Eos % (Auto) Baso % (Auto) Absolute Neuts (auto) Absolute Lymphs (auto) Nucleated RBC % PT INR APTT 54.5 H Sodium Potassium Chloride Carbon Dioxide Anion Gap BUN Creatinine Estim Creat Clear Calc Est GFR (MDRD) Af Amer Est GFR (MDRD) Non-Af BUN/Creatinine Ratio Glucose Calcium Magnesium Total Bilirubin AST ALT Alkaline Phosphatase Troponin I B-Natriuretic Peptide Total Protein Albumin Globulin Albumin/Globulin Ratio Lipase Code Visit Inpatient E&M: [id number] Disch Hosp
== END 2019-07-02 12:04 | disposition home or self-care (01) | DRG 175 ==
LOC: ED 18:41 → PCU 21:41
PROVIDERS: Admitting Provider Hospitalist; Emergency Provider Emergency Medicine; Family Provider Family Medicine; PCP Family Medicine; Visit Provider Internal Medicine
DX: I26.99 Other pulmonary embolism without acute cor pulmonale (principal); K85.10 Biliary acute pancreatitis without necrosis or infection; Z90.49 Acquired absence of other specified parts of digestive tract; R09.02 Hypoxemia; E87.6 Hypokalemia
CPT/HCPCS: 36415; 71275; 80048; 80053; 83690; 83735; 83880; 84484; 85025; 85610; 85730; 93005; 93306; 99285; Q9957; Q9967; A4216

== ENCOUNTER → 2019-07-11 14:28 | Outpatient (CLI) | payer MEDICARE, BC, SELFPAY ==
[2019-07-05 14:03] VITALS: BMI 25.2
--- NOTE | 2019-07-11 14:35 | RAD_ITS ---
STUDY: X-RAY - ABDOMEN/PELVIS REASON FOR EXAM: Female, 64 years old. Nausea, vomiting TECHNIQUE: 3 AP views COMPARISON: None. FINDINGS: Normal visualized lung bases. There is a stent in the right and midabdomen, this may be a biliary stent. There are circular calcifications in the left upper quadrant may be in the left kidney but may also represent diverticula. There is a moderate amount of colonic fecal material. There is no demonstrated free abdominal air. The visualized liver, spleen and kidneys are grossly normal in size and morphology. Normal soft tissue structures. Normal visualized osseous structures. RAD/Abd Inc Decub and/or Erect IMPRESSION: Stent in the right and mid abdomen free of obvious complication Circular calcifications in the left upper quadrant likely represent renal stones or may represent diverticula No acute findings, moderate retained stool Electronically Signed: Jimmy Monroy MD at 18:15 EDT , Service support ,
[2019-07-11 17:36] LABS: Absolute Lymphocyte Count 1.86 X10^3/uL (0.83-4.51); Absolute Neutrophil Count 2.4 X10^3/uL (2.0-7.7); Basophil# 0.08 X10^3/uL; Basophil% 1.6 % (0-1); Eosinophil# 0.23 X10^3/uL; Eosinophils% 4.5 % (0-5); Hematocrit 32.9 % (37-47); Hemoglobin 10.7 g/dL (12.0-15.0); Lymphocyte # 1.86 X10^3/ul (4.0); Lymphocyte % 36.3 % (19-41); Mean Corp Hgb Conc 32.5 g/dL (32-36); Mean Corpuscular Hgb 31.2 pg (27.0-32.0); Mean Corpuscular Volume 95.9 fL (81-99); Mean Platelet Vol. 10.3 fl (6.2-12.0); Monocyte# 0.52 X10^3/uL; Monocyte% 10.1 % (0-10); NRBC Flagged by Analyzer 0 % (0-5); Neutrophil % 46.7 % (47-70); Platelet Count 546 K/mm3 (150-450); RBC Distribution Width SD 48.7 fl (35.1-43.9); Red Blood Count 3.43 M/mm3 (4.2-5.4); White Blood Count 5.1 K/mm3 (4.4-11.0)
[2019-07-11 17:57] LABS: AST(SGOT) 33 U/L (15-37); Alanine Aminotransfer ALT/SGPT 47 U/L (13-56); Albumin, Serum 3.8 g/dL (3.2-5.0); Alkaline Phosphatase 242 U/L (45-117); Bilirubin, Direct 0.25 mg/dL (0.00-0.30); Globulin 3.4 g/dL (2.2-4.2); Lipase 961 U/L (73-393); Protein, Total 7.2 g/dL (6.4-8.2)
== END ==
PROVIDERS: Family Medicine; Family Provider Family Medicine; PCP Family Medicine; Referring Provider Internal Medicine Gastroenterology; Visit Provider Internal Medicine Gastroenterology
DX: R11.2 Nausea with vomiting, unspecified (principal); D72.819 Decreased white blood cell count, unspecified; K80.50 Calculus of bile duct without cholangitis or cholecystitis without obstruction; Z86.711 Personal history of pulmonary embolism; Z87.19 Personal history of other diseases of the digestive system
CPT/HCPCS: 36415; 74019; 80076; 83690; 85025

== ENCOUNTER → 2019-07-14 11:03 | Outpatient (CLI) | payer MEDICARE, BC, SELFPAY ==
[2019-07-05 14:03] VITALS: BMI 25.2
[2019-07-14 12:44] LABS: Ferritin 167 ng/mL (8-252); Iron 56 ug/dL (50-170); Iron Binding Capacity,Total 339 ug/dL (250-450); PERCENT IRON SATURATION 16.5 % (15.0-55.0)
== END ==
PROVIDERS: Family Provider Family Medicine; PCP Family Medicine; Referring Provider Family Medicine; Visit Provider Family Medicine
DX: D64.9 Anemia, unspecified (principal)
CPT/HCPCS: 36415; 82728; 83540; 83550

== ENCOUNTER → 2019-07-27 08:02 | Outpatient (CLI) | payer MEDICARE, BC, SELFPAY ==
[2019-07-05 14:03] VITALS: BMI 25.2
--- NOTE | 2019-07-27 08:04 | US_ITS ---
STUDY: ABDOMINAL ULTRASOUND REASON FOR EXAM: Female, 64 years old. Choledocholithiasis TECHNIQUE: Transabdominal ultrasound was performed with real-time and static jackman scale imaging. TECHNICAL QUALITY: Adequate. COMPARISON: None. FINDINGS: Liver: The liver measures 11.9 cm. There is normal echogenicity of the liver. The bile ducts are within normal limits. There is hepatic color flow. The direction of portal flow is hepatopetal. There is no demonstrated mass lesion. Portal vein measurement: Gallbladder: Cholecystectomy. Common Bile Duct (C.B.D.): The common bile duct measures 5.8 mm. A common bile duct stent is in place. No choledocholithiasis is detected. Pancreas: Normal size of the head, body and tail of the pancreas. There is normal echogenicity of the pancreas. There is no demonstrated pancreatic mass or cyst. Spleen: Normal size of the spleen. The spleen measures 12.4 cm. Right Kidney: Normal size of the right kidney. The right kidney measures 10 x 4.8 x 4.7 cm. Normal renal cortex. The right cortex measures 1.7 cm. There is no demonstrated renal mass or cyst. There is no right hydronephrosis. A 3 mm nonobstructing stone is suspected. Left Kidney: Normal size of the left kidney. The left kidney measures 11.1 x 4.2 x 4.2 cm. Normal renal cortex. The left cortex measures 1.5 cm. There is no demonstrated renal mass or cyst. There is no left hydronephrosis. Aorta: Normal I.V.C.: The IVC is patent. There is no ascites. US/Abdomen Complete IMPRESSION: A common bile duct stent is in place. No choledocholithiasis is detected. Probable small nonobstructing right renal stone. Electronically Signed: Bishop Dey MD at 18:01 EDT Tel , Service support ,
== END ==
PROVIDERS: Family Provider Family Medicine; PCP Family Medicine; Referring Provider Internal Medicine Gastroenterology; Visit Provider Internal Medicine Gastroenterology
DX: K80.50 Calculus of bile duct without cholangitis or cholecystitis without obstruction (principal)
CPT/HCPCS: 76700

== ENCOUNTER → 2019-08-04 13:18 | Outpatient (CLI) | payer MEDICARE, BC, SELFPAY ==
[2019-07-05 14:03] VITALS: BMI 25.2
[2019-08-04 14:43] LABS: AST(SGOT) 24 U/L (15-37); Alanine Aminotransfer ALT/SGPT 32 U/L (13-56); Albumin, Serum 3.7 g/dL (3.2-5.0); Alkaline Phosphatase 114 U/L (45-117); Bilirubin, Direct 0.18 mg/dL (0.00-0.30); Globulin 2.9 g/dL (2.2-4.2); Lipase 304 U/L (73-393); Protein, Total 6.6 g/dL (6.4-8.2)
== END ==
PROVIDERS: Family Provider Family Medicine; PCP Family Medicine; Referring Provider Internal Medicine Gastroenterology; Visit Provider Internal Medicine Gastroenterology
DX: K80.50 Calculus of bile duct without cholangitis or cholecystitis without obstruction (principal); Z87.19 Personal history of other diseases of the digestive system
CPT/HCPCS: 36415; 80076; 83690

== ENCOUNTER → 2019-10-11 10:31 | Outpatient (CLI) | payer MEDICARE, BC, SELFPAY ==
[2019-07-05 14:03] VITALS: BMI 25.2
[2019-10-11 12:19] LABS: Absolute Lymphocyte Count 1.23 X10^3/uL (0.83-4.51); Absolute Neutrophil Count 1.7 X10^3/uL (2.0-7.7); Basophil# 0.05 X10^3/uL; Basophil% 1.4 % (0-1); Eosinophil# 0.07 X10^3/uL; Hematocrit 42.8 % (37-47); Hemoglobin 13.9 g/dL (12.0-15.0); Lymphocyte # 1.23 X10^3/ul (4.0); Lymphocyte % 34.7 % (19-41); Mean Corp Hgb Conc 32.5 g/dL (32-36); Mean Corpuscular Hgb 29.9 pg (27.0-32.0); Mean Platelet Vol. 10.6 fl (6.2-12.0); Monocyte# 0.45 X10^3/uL; Monocyte% 12.7 % (0-10); NRBC Flagged by Analyzer 0 % (0-5); Neutrophil # 1.73 X10^3/uL (2.7-7.7); Neutrophil % 48.9 % (47-70); Platelet Count 224 K/mm3 (150-450); RBC Distribution Width CV 12.8 % (11.6-14.6); RBC Distribution Width SD 43.2 fl (35.1-43.9); Red Blood Count 4.65 M/mm3 (4.2-5.4); White Blood Count 3.5 K/mm3 (4.4-11.0)
== END ==
PROVIDERS: Family Provider Family Medicine; PCP Family Medicine; Referring Provider Family Medicine; Visit Provider Family Medicine
DX: D64.9 Anemia, unspecified (principal)
CPT/HCPCS: 36415; 85025

== ENCOUNTER → 2020-04-25 13:40 | Outpatient (CLI) | payer MEDICARE, BC, SELFPAY ==
[2019-07-05 14:03] VITALS: BMI 25.2
--- NOTE | 2020-04-25 13:43 | BI_ITS ---
MAMMOGRAPHY - BILATERAL SCREENING REASON FOR EXAM: Female, 65 years old. Routine annual screening examination. PERTINENT HISTORY: Mother with breast cancer. TECHNIQUE: Digital bilateral breast jose d (3D mammographic acquisition) in the CC and MLO projections. 2-D mediolateral oblique (MLO) and craniocaudad (CC) views of both breasts were obtained. CAD: Full Field Digital Mammography with Computer Added Detection was performed. COMPARISON: Comparison is made with prior study dated December 18, 2018 and October 01, 2017. FINDINGS: Breast Composition: There are scattered areas of fibroglandular density. There are no dominant masses or suspicious calcifications. No other significant abnormalities are identified. There has been no significant change since the prior study. BI/SCREEN MAMM (CAD) W/JOSE D BILAT IMPRESSION: Stable bilateral screening mammogram. Yearly follow-up mammogram recommended. (A) ASSESSMENT CATEGORY: BIRADS Category 1: Negative. A letter regarding these results will be sent to the patient by the facility within 30 days. Approximately 10% of breast cancers are not detected by mammography. A normal mammogram should not delay biopsy of a clinically suspicious abnormality. [id number] Electronically Signed: Kemar Price, at 15:25 EDT , Service support ,
== END ==
PROVIDERS: PCP Family Medicine; Referring Provider Family Medicine; Visit Provider Family Medicine
DX: Z12.31 Encounter for screening mammogram for malignant neoplasm of breast (principal)
CPT/HCPCS: 77063; 77067

== ENCOUNTER → 2020-10-03 08:34 | Outpatient (CLI) | payer MEDICARE, BC, SELFPAY ==
[2019-07-05 14:03] VITALS: BMI 25.2
[2020-10-03 09:59] LABS: Absolute Lymphocyte Count 1.28 X10^3/uL (0.83-4.51); Absolute Neutrophil Count 1.6 X10^3/uL (2.0-7.7); Basophil# 0.05 X10^3/uL; Basophil% 1.5 % (0-1); Eosinophil# 0.09 X10^3/uL; Eosinophils% 2.6 % (0-5); Hematocrit 40.1 % (37-47); Hemoglobin 13.3 g/dL (12.0-15.0); Lymphocyte # 1.28 X10^3/ul (4.0); Lymphocyte % 37.4 % (19-41); Mean Corp Hgb Conc 33.2 g/dL (32-36); Mean Corpuscular Hgb 30.6 pg (27.0-32.0); Mean Corpuscular Volume 92.2 fL (81-99); Mean Platelet Vol. 10.6 fl (6.2-12.0); Monocyte# 0.43 X10^3/uL; Monocyte% 12.6 % (0-10); NRBC Flagged by Analyzer 0 % (0-5); Neutrophil # 1.56 X10^3/uL (2.7-7.7); Neutrophil % 45.6 % (47-70); Platelet Count 205 K/mm3 (150-450); RBC Distribution Width CV 13.3 % (11.6-14.6); Red Blood Count 4.35 M/mm3 (4.2-5.4); White Blood Count 3.4 K/mm3 (4.4-11.0)
[2020-10-03 10:14] LABS: ALB/GLOB Ratio 1.2 RATIO (0.9-2.4); AST(SGOT) 24 U/L (15-37); Alanine Aminotransfer ALT/SGPT 32 U/L (13-56); Albumin, Serum 3.7 g/dL (3.2-5.0); Alkaline Phosphatase 130 U/L (45-117); Anion Gap 4 (5-15); BUN 10 mg/dL (7-18); BUN/Creat Ratio 11.8 RATIO (10-20); Chloride 104 mmol/L (98-107); Creatinine, Serum 0.84 mg/dL (0.55-1.02); EST Glomerular Filtration Rate 72 mL/min (>60); Est Glom Filt Rate - Afr Amer 87 mL/min (>60); Globulin 3.1 g/dL (2.2-4.2); Glucose 84 mg/dL (74-106); Potassium 4.2 mmol/L (3.5-5.1); Protein, Total 6.8 g/dL (6.4-8.2); Sodium Level 138 mmol/L (136-145)
== END ==
PROVIDERS: PCP Family Medicine; Referring Provider Family Medicine; Visit Provider Family Medicine
DX: D64.9 Anemia, unspecified (principal); Z13.220 Encounter for screening for lipoid disorders
CPT/HCPCS: 36415; 80053; 85025

== ENCOUNTER → 2021-08-01 07:12 | Outpatient (CLI) | payer MEDICARE, BC, SELFPAY ==
--- NOTE | 2021-08-01 07:16 | BI_ITS ---
MAMMOGRAPHY - BILATERAL SCREENING 3-D TOMOSYNTHESIS REASON FOR EXAM: Female, 66 years old. SCREENING PERTINENT HISTORY: No significant family history. TECHNIQUE: 2-D mammograms and 3-D Tomosynthesis of the breast (s) were performed. CAD was performed. COMPARISON: 04/25/2020 FINDINGS: The breast composition is composed of scattered fibroglandular density. Scattered benign calcifications are seen. No dense spiculated masses or suspicious microcalcifications are identified. No architectural distortion is identified. There is no skin thickening or retraction. There has been no significant change since the prior study. BI/SCRN MAMM (CAD)W/JOSE D BILAT IMPRESSION: No mammographic signs of malignancy. Routine yearly mammograms recommended. ASSESSMENT CATEGORY: BIRADS Category 1: Negative. A letter regarding these results will be sent to the patient by the facility within 30 days. FOLLOW UP RECOMMENDATION: Yearly follow up mammogram recommended. (A) Approximately 10% of breast cancers are not detected by mammography. A normal mammogram should not delay biopsy of a clinically suspicious abnormality. Electronically Signed: Sal Mallory MD at 11:10 EDT Tel , Service support ,
== END ==
PROVIDERS: PCP Family Medicine; Referring Provider Family Medicine; Visit Provider Family Medicine
DX: Z12.31 Encounter for screening mammogram for malignant neoplasm of breast (principal)
CPT/HCPCS: 77063; 77067

== ENCOUNTER → 2021-08-01 08:03 | Outpatient (CLI) | payer MEDICARE, BC, SELFPAY ==
[2021-08-01 10:07] LABS: Absolute Lymphocyte Count 1.22 X10^3/uL (0.83-4.51); Absolute Neutrophil Count 1.6 X10^3/uL (2.0-7.7); Basophil# 0.04 X10^3/uL; Basophil% 1.2 % (0-1); Eosinophil# 0.11 X10^3/uL; Eosinophils% 3.2 % (0-5); Hematocrit 39.5 % (37-47); Hemoglobin 13.1 g/dL (12.0-15.0); Lymphocyte # 1.22 X10^3/ul (0.83-4.51); Lymphocyte % 35.5 % (19-41); Mean Corp Hgb Conc 33.2 g/dL (32-36); Mean Corpuscular Hgb 30.6 pg (27.0-32.0); Mean Corpuscular Volume 92.3 fL (81-99); Mean Platelet Vol. 10.4 fl (6.2-12.0); Monocyte# 0.44 X10^3/uL; Monocyte% 12.8 % (0-10); NRBC Flagged by Analyzer 0 % (0-5); Neutrophil # 1.63 X10^3/uL (2.7-7.7); Neutrophil % 47.3 % (47-70); Platelet Count 203 K/mm3 (150-450); RBC Distribution Width CV 13.1 % (11.6-14.6); RBC Distribution Width SD 44.2 fl (35.1-43.9); Red Blood Count 4.28 M/mm3 (4.2-5.4); White Blood Count 3.4 K/mm3 (4.4-11.0)
[2021-08-01 10:53] LABS: ALB/GLOB Ratio 1.1 RATIO (0.9-2.4); AST(SGOT) 27 U/L (15-37); Alanine Aminotransfer ALT/SGPT 40 U/L (13-56); Albumin, Serum 3.6 g/dL (3.2-5.0); Alkaline Phosphatase 125 U/L (45-117); Anion Gap 8 (5-15); BUN 11 mg/dL (7-18); BUN/Creat Ratio 13.3 RATIO (10-20); Calcium,Total 8.9 mg/dL (8.5-10.1); Chloride 107 mmol/L (98-107); Cholesterol 159 mg/dL (200); Creatinine, Serum 0.83 mg/dL (0.55-1.02); EST Glomerular Filtration Rate 73 mL/min (>60); Est Glom Filt Rate - Afr Amer 88 mL/min (>60); Globulin 3.2 g/dL (2.2-4.2); Glucose 91 mg/dL (74-106); High Density Lipoprotein 78 mg/dL; Potassium 3.8 mmol/L (3.5-5.1); Protein, Total 6.8 g/dL (6.4-8.2); Sodium Level 143 mmol/L (136-145); Triglycerides 69 mg/dL; Very Low Density Lipoprotein 14 mg/dL (5-40)
== END ==
PROVIDERS: Family Medicine; PCP Family Medicine; Referring Provider Family Medicine; Visit Provider Family Medicine
DX: Z12.31 Encounter for screening mammogram for malignant neoplasm of breast (principal); R07.89 Other chest pain; R03.0 Elevated blood-pressure reading, without diagnosis of hypertension
CPT/HCPCS: 36415; 77063; 77067; 80053; 80061; 85025

== ENCOUNTER → 2021-08-22 09:21 | Outpatient (CLI) | payer MEDICARE, BC, SELFPAY ==
[2021-08-22 10:31] LABS: Vitamin D,25 Hydroxy 39.7 ng/mL
== END ==
PROVIDERS: PCP Family Medicine; Referring Provider Family Medicine; Visit Provider Family Medicine
DX: E55.9 Vitamin D deficiency, unspecified (principal)
CPT/HCPCS: 36415; 82306